=== PATIENT | male | born 1960 | race African-American/Black ===

== ENCOUNTER 2017-07-11 11:06 | Inpatient (IN) | payer BC ==
--- NOTE | 2017-07-11 12:04 | DR.GENAD ---
HPI - PCP Primary Care Physician: CB DE SANTIAGO - HPI Comment HPI Comment: PATIENT TOOK DUCOLAX WHICH HAVE CAUSE MULTIPLE BOWEL MOVEMENT. HE IS WEAK AND DIZZY. IN ED, BP WAS LOW. - Complaint/Symptoms Chief Complaint Doctors Comments: ABDOMINAL PAIN, N/V/D TIMES 5 DAYS. Chief Complaint:: PT STATES I HAVE BEEN THROWING UP AND HAVING DIARRHEA"..... THAT STATES THIS STARTED LAST WEDNESDAY,, Self Treatment fo Chief Complaint: DULCOLAX - Nurses notes reviewed Nurses Notes Review: Yes - Source History Provided: Patient - Mode of Arrival Mode of Arrival: Ambulatory - Timing Onset of Chief Complaint: 07/06/17 Came on: Suddenly - Duration Duration: Constant Duration: Days - Severity Severity: Moderate PMH - PMH Past Medical History: Yes Past Medical History: Hypertension Past Surgical History: No - Family History History of Family Medical Conditions: Yes Family Medical History: Hypertension - Social History Does patient currently use any type of tobacco product: No Have you used tobacco products in the last 12 months: No Type of Tobacco Use: None Does any household member use tobacco: No Alcohol Use: Rarely Do you use any recreational Drugs:: No Lives With: Alone Lives Where: Home - infectious screening In the last 2 months have you had wt loss of >10#?: NO Have you had fever, night sweats or hemotysis?: No Have you traveled outside the country in the last 6 months?: No Isolation: Standard ROS - Review of Systems Constitutional: Fever, Weakness, Fatigue. negative: Chills, Diaphoresis, Loss of Appetite Eyes: No Symptoms Reported. negative: Eye Pain, Discharge ENTM: No Symptoms Reported. negative: Ear Pain, Nose Discharge, Nose Congestion , Throat Pain Respiratoy: Short of Breath (ON EXERTION). negative: Productive Cough, Non- Productive Cough, Wheezing, Hemoptysis Cardiovascular: No Symptoms Reported. negative: Chest Pain Gastrointestinal/Abdominal: Abdominal Pain, Diarrhea, Nausea, Vomiting Genitourinary: No Symptoms Reported. negative: Dysuria, Frequency, Hematuria Neurological: Weakness, Dizziness Musculoskeletal: Muscle Pain Integumentary: No Symptoms Reported Hematologic/Lymphatic: No Symptoms Reported Endocrine: No Symptoms Reported All Other Systems: Reviewed and Negative PE - Vital Signs Vitals: Temperature 101.5 F Pulse Rate 104 Respiratory Rate 20 Blood Pressure [Left Arm] 180/99 Blood Pressure 184/90 O2 Sat by Pulse Oximetry 98 - General Limitations: No Limitations General Appearance: Alert - Head Head Exam: Normal Inspection - Eyes Eye exam: Normal Appearance - ENT ENT Exam: Normal External Ear Exam External Ear Exam: Normal External Inspection TM/Canal Exam: Bilateral Normal Nose Exam: Normal Nose Exam Mouth Exam: Normal Inspection Throat Exam: Normal Inspection - Neck Neck Exam: Trachea Midline - Chest Chest Inspection: Symmetric Chest Wall Rise - Respiratory Respiratory Exam: Normal Lung Sounds Bilat Respiratory Exam: Bilateral Clear to Auscultation - Cardiovascular Cardiovascular Exam: Regular Rate, Normal Rhythm, Normal Heart Sounds - Abdominal Exam Abdominal Exam: Normal Bowel Sounds, Soft, Tenderness Abdominal Tenderness: Diffuse, Moderate - Extremities Extremities Exam: Normal Inspection - Back Back Exam: Normal Inspection - Neurologic Neurological Exam: Alert, Oriented X3 - Psychiatric Psychiatric Exam: Normal Affect, Normal Mood - Skin Skin Exam: Normal Color MDM - Differential Diagnosis Differential Diagnosis: ABDOMINAL PAIN, DIARRHEA, DEHYDRATION. Course - Treatment Treatment: SEE ORDERS. IV FLUIDS IN ED. - Consultation Consultation Comments: DISCUSS PATIENT WITH DR. ROLLINS. HE WILL ADMIT PATIENT. - Education/Counseling Education/Counseling: Patient, Education Educated On: Treatment, Diagnosis, Needs for Follow Up ROR - Labs Reviewed Laboratory Results Reviewed?: Yes Result Diagrams: 07/13/17 04:49 07/13/17 04:49 - XRAY XRAY Interpreted by: Radiologist - Diagnosis Discharge Problem: Gastroenteritis, Dehydration Abdominal pain Qualifiers: Abdominal location: generalized Qualified Code(s): R10.84 - Generalized abdominal pain - Discharge Plan Disposition: ADMITTED INPATIENT Condition: Stable - Follow ups/Referrals - Instructions
[2017-07-11 12:21] LABS: BASOPHILS % (AUTO) 0.3 % (0.2-1.0); HEMATOCRIT 42.4 % (42.0-54.0); HEMOGLOBIN 14.3 g/dL (13.5-18.0); LYMPHOCYTES # (AUTO) 0.9 X10^3/uL (1.3-2.9); LYMPHOCYTES % (AUTO) 7.1 % (21.0-51.0); MEAN CORPUSCULAR HEMOGLOBIN 30.6 pg (27.0-34.0); MEAN CORPUSCULAR HGB CONC 33.7 g/dL (33.0-35.0); MEAN CORPUSCULAR VOLUME 90.6 fL (80.0-100.0); MEAN PLATELET VOLUME 11.3 fL (7.4-11.0); MONOCYTES # (AUTO) 2.1 x10^3/uL (0.3-0.8); MONOCYTES % (AUTO) 16.6 % (0.0-13.0); NEUTROPHILS # (AUTO) 9.6 x10^3/uL (2.2-4.8); PLATELET COUNT 65 X10^3/uL (150.0-450.0); RED BLOOD COUNT 4.68 X10^6/uL (4.7-6.0); RED CELL DISTRIBUTION WIDTH 13.2 % (11.6-16.5); WHITE BLOOD COUNT 12.6 X10^3/uL (3.6-10.0)
[2017-07-11 12:27] LABS: ALBUMIN 2.8 g/dL (3.4-5.0); CALCIUM 8.7 mg/dL (8.5-10.1); CARBON DIOXIDE 24.1 mmol/L (21-32); COR CA(FOR HYPOALB) 9.7 mg/dL (8.5-10.1); CREATININE 3.02 mg/dL (0.70-1.30); TOTAL PROTEIN 8.1 g/dL (6.4-8.2)
[2017-07-11 12:30] LABS: PLATELET MORPHOLOGY COMMENT NORMAL (NORMAL)
[2017-07-11] MEDS ORDERED: NS 1000 ML 1,000 ML IV ONE (13:01)
[2017-07-11] MEDS ORDERED: NS 1000 ML 1,000 ML ONE ×2 (13:09→13:17)
[2017-07-11 13:32] LABS: BILIRUBIN,URINE 1+ (NEGATIVE); BLOOD/HEMOGLOBIN,URINE 5+ (NEGATIVE); GLUCOSE, URINE NEGATIVE (NEGATIVE); KETONES,URINE 1+ (NEGATIVE); LEUKOCYTE ESTERASE ,URINE 1+ (NEGATIVE); NITRITES,URINE NEGATIVE (NEGATIVE); PROTEIN,URINE 4+ (NEGATIVE); UROBILINOGEN,URINE 1+ (NORMAL)
[2017-07-11 13:47] LABS: APPEARANCE,URINE HAZY (CLEAR); BACTERIA,URINE TRACE /HPF (NEGATIVE); COLOR,URINE YELLOW (YELLOW); RBC,URINE 0-2 /HPF (NEGATIVE); SQUAMOUS EPITHELIAL CELL,UR NEGATIVE /HPF (NEGATIVE)
[2017-07-11 13:48] LABS: AMORPHOUS SEDIMENT,UR 2+ /HPF (NEGATIVE)
[2017-07-11] MEDS ORDERED: TYLENOL 500 MG TAB EXTRA STRENGTH PO ONE ×2 (15:27→15:32)
[2017-07-11] MEDS ORDERED: PHENERGAN INJ 25 MG IVP PRN (15:35)
[2017-07-11] MEDS ORDERED: ZOFRAN INJ 4 MG VIAL IVP PRN (15:35)
[2017-07-11] MEDS ORDERED: PEPCID 20 MG IV PREMIX* 20 MG/50 ML BAG IV PRN (15:35)
[2017-07-11] MEDS ORDERED: MORPHINE SULFATE INJ 2 MG INJ IVP PRN (15:35)
--- NOTE | 2017-07-11 16:17 | RAD ---
Examination: Abdomen with PA chest History: Vomiting and diarrhea Findings: PA chest demonstrates upper normal heart size with dilated aorta, lungs clear except for mi ld bibasal atelectasis. Abdomen: There is moderate gaseous distention of scattered segments of colon and small bowel. No free air, significant fluid level, ascites or pathologic calcification is noted. Impression: 1. PA chest demonstrates mild bibasal atelectasis. 2. Described intestinal gas pattern most consistent with reflex ileus. However, follow-up recommended if developing intestinal obstruction is a clinical concern. Reported By:
[2017-07-11] MEDS: NS 1000 ML 1,000 ML IV SCH ×3 (16:50→21:55)
[2017-07-11 22:18] LABS: BILIRUBIN,URINE 1+ (NEGATIVE); BLOOD/HEMOGLOBIN,URINE 4+ (NEGATIVE); GLUCOSE, URINE NEGATIVE (NEGATIVE); KETONES,URINE NEGATIVE (NEGATIVE); LEUKOCYTE ESTERASE ,URINE 1+ (NEGATIVE); NITRITES,URINE NEGATIVE (NEGATIVE); PROTEIN,URINE 3+ (NEGATIVE); UROBILINOGEN,URINE 1+ (NORMAL)
[2017-07-11 23:04] LABS: AMORPHOUS SEDIMENT,UR 2+ /HPF (NEGATIVE); APPEARANCE,URINE HAZY (CLEAR); BACTERIA,URINE TRACE /HPF (NEGATIVE); COLOR,URINE YELLOW (YELLOW); RBC,URINE 0-3 /HPF (NEGATIVE); SQUAMOUS EPITHELIAL CELL,UR RARE /HPF (NEGATIVE)
[2017-07-12] MEDS: NS 1000 ML 1,000 ML IV SCH ×3 (00:05→08:41)
[2017-07-12] MEDS: TYLENOL 325 MG TAB PO PRN ×3 (00:13→12:41)
[2017-07-12 02:22] LABS: STOOL FOR WBC NEGATIVE (NEGATIVE)
[2017-07-12 06:23] LABS: BASOPHILS % (AUTO) 0.4 % (0.2-1.0); HEMATOCRIT 42.2 % (42.0-54.0); LYMPHOCYTES # (AUTO) 0.8 X10^3/uL (1.3-2.9); LYMPHOCYTES % (AUTO) 6.6 % (21.0-51.0); MEAN CORPUSCULAR HEMOGLOBIN 30.9 pg (27.0-34.0); MEAN CORPUSCULAR HGB CONC 33.3 g/dL (33.0-35.0); MEAN PLATELET VOLUME 12.5 fL (7.4-11.0); MONOCYTES % (AUTO) 17.8 % (0.0-13.0); NEUTROPHILS # (AUTO) 8.7 x10^3/uL (2.2-4.8); NEUTROPHILS % (AUTO) 75.2 % (42.0-75.0); PLATELET COUNT 59 X10^3/uL (150.0-450.0); RED BLOOD COUNT 4.54 X10^6/uL (4.7-6.0); RED CELL DISTRIBUTION WIDTH 13.6 % (11.6-16.5); WHITE BLOOD COUNT 11.5 X10^3/uL (3.6-10.0)
[2017-07-12 06:31] LABS: ALANINE AMINOTRANSFERASE 212 Units/L (12-78); ALBUMIN 2.5 g/dL (3.4-5.0); ALKALINE PHOSPHATASE 78 Units/L (46-116); ASPARTATE AMINO TRANSFERASE 234 Units/L (15-37); BLOOD UREA NITROGEN 35 mg/dL (7-18); CALCIUM 8.3 mg/dL (8.5-10.1); CARBON DIOXIDE 23.7 mmol/L (21-32); CHLORIDE 103 mmol/L (98-107); COR CA(FOR HYPOALB) 9.5 mg/dL (8.5-10.1); CREATININE 3.11 mg/dL (0.70-1.30); SODIUM 138 mmol/L (136-145); TOTAL PROTEIN 7.4 g/dL (6.4-8.2); eGFR BLACK RACES 27 (>60); eGFR NON BLACK RACES 22 (>60)
[2017-07-12 07:14] LABS: PLATELET MORPHOLOGY COMMENT NORMAL (NORMAL)
[2017-07-12] MEDS ORDERED: BENAZEPRIL PO SCH (09:45)
[2017-07-12] MEDS ORDERED: PATIENT'S HOME MEDICATION (Cholecalciferol (Vitamin D3) [Vitamin D3] 1 TAB) PO SCH (09:45)
[2017-07-12] MEDS ORDERED: PATIENT'S HOME MEDICATION (Multivit-Min/Fa/Lycopen/Lutein [Centrum Silver Tablet] 1 TAB) PO SCH (09:45)
[2017-07-12] MEDS ORDERED: AMLODIPINE BESYLATE PO SCH (09:45)
[2017-07-12] MEDS ORDERED: [UNRECOGNIZED DRUG - OTHER] PO SCH (09:45)
[2017-07-12] MEDS ORDERED: LOTENSIN TAB 10 MG PO SCH (10:00)
[2017-07-12] MEDS: MINOXIDIL PO SCH (10:29)
[2017-07-12] MEDS: NORVASC TAB 5 MG PO SCH (10:29)
[2017-07-12] MEDS: PROTONIX TAB 40 MG PO SCH (10:29)
[2017-07-12] MEDS: FLAGYL TAB 500 MG PO SCH ×4 (10:29→20:43)
[2017-07-12] MEDS: NORMODYNE TAB 200 MG PO SCH ×3 (10:30→21:06)
--- NOTE | 2017-07-12 16:34 | US ---
HISTORY: Elevated liver enzymes Study: Ultrasound liver Comparison: No priors Technique: Grayscale and color Doppler imaging of the liver is provided. Findings: The liver is normal in size and displays innumerable cysts. No solid mass or ductal ectasia is seen. The common bile duct measures 5.5 mm in caliber. The gallbladder is unremarkable. No gallstone, gallb ladder wall thickening or pericholecystic fluid is seen. Multiple cysts are present involving the rig ht kidney. The right kidney is slightly enlarged measuring 10.16 x 10.25 x 17.5 cm. No solid mass, st one or hydronephrosis is seen. Findings have the appearance of polycystic liver and kidney disease. D oppler studies are normal. IMPRESSION: Polycystic liver and kidney disease. Reported By:
[2017-07-13] MEDS: TYLENOL 325 MG TAB PO PRN ×2 (00:25→14:47)
[2017-07-13] MEDS: NS 1000 ML 1,000 ML IV SCH ×3 (01:07→17:19)
[2017-07-13] MEDS: NORMODYNE TAB 200 MG PO SCH ×3 (05:27→21:43)
[2017-07-13 06:00] VITALS: BMI 32.1
[2017-07-13 06:20] LABS: BASOPHILS # (AUTO) 0.1 X10^3/uL (0.0-0.1); BASOPHILS % (AUTO) 0.6 % (0.2-1.0); HEMATOCRIT 34.7 % (42.0-54.0); HEMOGLOBIN 11.7 g/dL (13.5-18.0); MEAN CORPUSCULAR HGB CONC 33.8 g/dL (33.0-35.0); MEAN CORPUSCULAR VOLUME 91.9 fL (80.0-100.0); MEAN PLATELET VOLUME 11.9 fL (7.4-11.0); MONOCYTES # (AUTO) 1.6 x10^3/uL (0.3-0.8); MONOCYTES % (AUTO) 16.5 % (0.0-13.0); NEUTROPHILS # (AUTO) 7.3 x10^3/uL (2.2-4.8); NEUTROPHILS % (AUTO) 72.9 % (42.0-75.0); PLATELET COUNT 65 X10^3/uL (150.0-450.0); RED BLOOD COUNT 3.78 X10^6/uL (4.7-6.0); RED CELL DISTRIBUTION WIDTH 13.9 % (11.6-16.5)
[2017-07-13 06:37] LABS: ALBUMIN 2.1 g/dL (3.4-5.0); CALCIUM 7.7 mg/dL (8.5-10.1); COR CA(FOR HYPOALB) 9.2 mg/dL (8.5-10.1); CREATININE 5.51 mg/dL (0.70-1.30); TOTAL PROTEIN 6.4 g/dL (6.4-8.2)
[2017-07-13 07:13] LABS: PLATELET MORPHOLOGY COMMENT NORMAL (NORMAL)
[2017-07-13] MEDS: VITAMIN D3 PO SCH (08:11)
[2017-07-13] MEDS: TAB-A-VITE PO SCH (08:11)
[2017-07-13] MEDS: PROTONIX TAB 40 MG PO SCH (08:11)
[2017-07-13] MEDS: MINOXIDIL PO SCH (08:11)
[2017-07-13] MEDS: FLAGYL TAB 500 MG PO SCH ×4 (08:15→21:26)
[2017-07-13] MEDS: PEPCID 20 MG IV PREMIX* 20 MG/50 ML BAG IV SCH (08:18)
[2017-07-13] MEDS ORDERED: LR 1000 ML IV 1,000 ML IV ONE (08:49)
[2017-07-13] MEDS ORDERED: MINOXIDIL PO SCH (08:50)
[2017-07-13] MEDS: NORVASC TAB 5 MG PO SCH (09:55)
[2017-07-13] MEDS ORDERED: PHARMACY CONSULT - DOSE _____ XX SCH (11:00)
[2017-07-13] MEDS: MERREM PREMIX IV 500 MG 500 MG/50 ML BAG IV SCH ×2 (11:13→21:26)
[2017-07-13] MEDS ORDERED: NS 50 ML IV 50 ML IV ONE (21:19)
[2017-07-13] MEDS ORDERED: MAXIPIME VIAL 1 GM ONE (21:19)
[2017-07-13] MEDS ORDERED: MERREM VIAL ONE (21:20)
[2017-07-14] MEDS: TYLENOL 325 MG TAB PO PRN ×2 (00:36→11:16)
[2017-07-14] MEDS: NS 1000 ML 1,000 ML IV SCH ×2 (00:37→05:08)
[2017-07-14] MEDS: NORMODYNE TAB 200 MG PO SCH (05:39)
[2017-07-14 06:12] LABS: BASOPHILS # (AUTO) 0.1 X10^3/uL (0.0-0.1); BASOPHILS % (AUTO) 0.5 % (0.2-1.0); EOSINOPHILS % (AUTO) 0.1 % (0.9-2.9); HEMATOCRIT 36.6 % (42.0-54.0); HEMOGLOBIN 12.1 g/dL (13.5-18.0); LYMPHOCYTES # (AUTO) 0.6 X10^3/uL (1.3-2.9); LYMPHOCYTES % (AUTO) 5.3 % (21.0-51.0); MEAN CORPUSCULAR HEMOGLOBIN 30.5 pg (27.0-34.0); MEAN CORPUSCULAR HGB CONC 33.1 g/dL (33.0-35.0); MEAN CORPUSCULAR VOLUME 92.2 fL (80.0-100.0); MEAN PLATELET VOLUME 11.7 fL (7.4-11.0); MONOCYTES % (AUTO) 16.7 % (0.0-13.0); NEUTROPHILS # (AUTO) 9.1 x10^3/uL (2.2-4.8); NEUTROPHILS % (AUTO) 77.4 % (42.0-75.0); PLATELET COUNT 122 X10^3/uL (150.0-450.0); RED BLOOD COUNT 3.97 X10^6/uL (4.7-6.0); WHITE BLOOD COUNT 11.7 X10^3/uL (3.6-10.0)
[2017-07-14 06:33] LABS: ALBUMIN 2.1 g/dL (3.4-5.0); CALCIUM 7.8 mg/dL (8.5-10.1); CARBON DIOXIDE 20.6 mmol/L (21-32); COR CA(FOR HYPOALB) 9.3 mg/dL (8.5-10.1); CREATININE 6.01 mg/dL (0.70-1.30); TOTAL PROTEIN 6.6 g/dL (6.4-8.2)
[2017-07-14] MEDS ORDERED: POTASSIUM CHL 40 MEQ/NS 0.45% 500 ML IV PRN (06:38)
[2017-07-14] MEDS ORDERED: K-RIDER 10 MEQ/NS 100 ML 10 MEQ/100 ML BAG IV PRN (06:38)
[2017-07-14] MEDS ORDERED: MAGNESIUM SULFATE 1 GM/100 mL PREMIX 1 GM/100 ML BAG IV PRN (06:38)
[2017-07-14] MEDS ORDERED: K-LYTE EFFERVESCENT PO PRN (06:38)
[2017-07-14] MEDS ORDERED: MAG-OX TAB PO PRN (06:38)
[2017-07-14] MEDS ORDERED: POTASSIUM CHL 60 MEQ/NS 0.45% 500 ML IV PRN (06:38)
[2017-07-14] MEDS ORDERED: POTASSIUM CHLORIDE LIQ 20 MEQ UDC PO PRN (06:38)
[2017-07-14 07:07] LABS: BAND NEUTROPHILS % 4 % (0-10); PLATELET MORPHOLOGY COMMENT NORMAL (NORMAL)
[2017-07-14] MEDS: PROTONIX TAB 40 MG PO SCH (08:42)
[2017-07-14] MEDS: VITAMIN D3 PO SCH (08:42)
[2017-07-14] MEDS: FLAGYL TAB 500 MG PO SCH ×2 (08:42→12:09)
[2017-07-14] MEDS: PEPCID 20 MG IV PREMIX* 20 MG/50 ML BAG IV SCH (08:42)
[2017-07-14] MEDS: TAB-A-VITE PO SCH (08:43)
[2017-07-14] MEDS ORDERED: LR 1000 ML IV 2,000 ML IV ONE (08:51)
[2017-07-14] MEDS: NORVASC TAB 5 MG PO SCH (08:51)
[2017-07-14] MEDS ORDERED: DOPAMINE IV PREMIX 400 MG/250 ML 400 MG/250 ML BAG IV PRN (09:40)
[2017-07-14] MEDS ORDERED: PHARMACY CONSULT - DOSE _____ XX SCH (10:00)
[2017-07-14] MEDS ORDERED: MERREM VIAL 500 MG in NS 50 ML IV 50 ML IV SCH (10:00)
[2017-07-14] MEDS ORDERED: DEXTROSE IV PRN (10:59)
[2017-07-14] MEDS ORDERED: DOPAMINE IV PRN (10:59)
[2017-07-14] MEDS ORDERED: LANOXIN INJ IVP ONE (11:30)
[2017-07-14] MEDS ORDERED: LR 1000 ML IV 1,000 ML IV ONE ×2 (12:07→12:09)
[2017-07-14 13:10] VITALS: BP 114/62
[2017-07-15] MEDS ORDERED: LANOXIN PO SCH (09:00)
== END 2017-07-14 13:10 | disposition short-term general hospital (02) | DRG 392 ==
LOC: ER 11:24 → MED/SURG 16:04 → ICU 07-14 10:35
PROVIDERS: ADMIT Obstetrics & Gynecology Obstetrics; ATTEND Obstetrics & Gynecology Obstetrics
DX: R10.84 Generalized abdominal pain (principal); K52.89 Other specified noninfective gastroenteritis and colitis; A04.72 Enterocolitis due to Clostridium difficile, not specified as recurrent; N28.1 Cyst of kidney, acquired; E86.0 Dehydration; R11.2 Nausea with vomiting, unspecified; R19.7 Diarrhea, unspecified; I12.9 Hypertensive chronic kidney disease with stage 1 through stage 4 chronic kidney disease, or unspecified chronic kidney disease; R06.02 Shortness of breath; R94.31 Abnormal electrocardiogram [ECG] [EKG]; B96.1 Klebsiella pneumoniae [K. pneumoniae] as the cause of diseases classified elsewhere; K92.2 Gastrointestinal hemorrhage, unspecified; R94.4 Abnormal results of kidney function studies; N18.9 Chronic kidney disease, unspecified
CPT/HCPCS: 36415; 74022; 76705; 80053; 81001; 82150; 83630; 83690; 83735; 85025; 87040; 87045; 87077; 87186; 87427; 87493; 87502; 87899; 93005; 93010; 94640; 96365; 96367; 99284; A4222; S0028; J0692; J1160; J1265; J2185; J7120